=== PATIENT | male | born 1955 | race Caucasian/White ===

== ENCOUNTER 2021-10-14 07:20 | Day surgery (SDC) | payer OTHER ==
--- NOTE | 2021-10-10 10:51 | RAD REPORT ---
EXAM DESCRIPTION: Shanika Blum (2 Views)10/10/2021 10:46 am CLINICAL HISTORY: Preop for colonoscopy COMPARISON: None FINDINGS: The lungs appear clear of acute infiltrate. The heart is normal size IMPRESSION: No acute abnormalities displayed
[2021-10-10 11:00] LABS: Hematocrit 47.5 % (39.6-49.0); Lymphocytes % 26.3 % (15.3-44.8); MPV 7.4 fL (7.6-11.3); RBC Red Blood Cell Count 5.34 M/uL (4.33-5.43)
[2021-10-10 12:40] LABS: Potassium 4.6 mmol/L (3.5-5.1)
[2021-10-14] MEDS ORDERED: Ringers Lactate 1,000 ML IV ONE (07:41)
[2021-10-14] MEDS ORDERED: LIDOCAINE 1% MPF 5 ML VIAL ONE (08:27)
[2021-10-14] MEDS ORDERED: propofoL 200 MG/20 ML VIAL IV ONE (08:27)
--- NOTE | 2021-10-14 08:58 | ENDO RPT ---
[address], [address] COLONOSCOPY PROCEDURE REPORT EXAM DATE: 10/14/2021 PATIENT NAME: Sami Michel MR #: [id number] BIRTHDATE: 1955 ATTENDING: Magdiel Winters M.D. STATUS: outpatient GOLD NIB GRINDER: Kelsey Linton RN INDICATIONS: The patient is a 66 yr old Male here for a colonoscopy due to colon cancer screening and Cologuard Positive PROCEDURE PERFORMED: Colonoscopy MEDICATIONS: Per Anesthesia. ESTIMATED BLOOD LOSS: None CONSENT: The patient understands the risks and benefits of the procedure and understands that these risks include, but are not limited to: sedation, allergic reaction, infection, perforation and/or bleeding. Alternative means of evaluation and treatment include, among others: physical exam, x-rays, and/or surgical intervention. The patient elects to proceed with this endoscopic procedure. DESCRIPTION OF PROCEDURE: During intra-op preparation period all mechanical medical equipment was checked for proper function. Hand hygiene and appropriate measures for infection prevention was taken. Procedure, possible complications, alternatives including, but not limited to possibility of bleeding, perforation, tear, infection, sepsis, need for surgery, need for blood transfusion, were explained to the patient. After the risks, benefits and alternatives of the procedure were thoroughly explained, Informed consent was verified, confirmed and timeout was successfully executed by the treatment team. The patient was placed in the left lateral position. A digital rectal exam was performed and revealed an enlarged prostate. After appropriate level of anesthesia, the scope was passed. The EC-[id number] ([id number]) endoscope was introduced through the anus and advanced to the cecum, which was identified by the ileocecal valve. The quality of the prep was good. The instrument was then slowly withdrawn as the colon was fully examined. Scope withdrawal time was 12 minutes. COLON FINDINGS: Mild diverticulosis was noted in the sigmoid colon. Small internal hemorrhoids were found. Retroflexed views revealed no abnormalities. The scope was then completely withdrawn from the patient and the procedure terminated. ADVERSE EVENTS: There were no complications. IMPRESSIONS: 1. Mild diverticulosis was noted in the sigmoid colon 2. Small internal hemorrhoids RECOMMENDATIONS: 1. follow-up: office 1 week(s) 2. Metamucil 3. fiber rich diet 4. increase dietary water 5. no seeds in diet RECALL: Return in 5 year(s) for Colonoscopy. Magdiel Winters M.D. eSigned: Magdiel Winters M.D. 10/14/2021 8:57 AM cc: Charbel Estevez MD CPT CODES: ICD9 CODES: PATIENT NAME: Sami Michel MR#: [id number]
[2021-10-14 09:48] VITALS: BP 111/78; TEMP 97.7; O2SAT 98
--- NOTE | 2021-10-14 11:26 | EKG ---
Test Date: 2021-10-10 Test Time: 09:26:42 Chief Security Officer: YUMIKO MEASUREMENT RESULTS: Intervals: Rate: 62 IN: 152 QRSD: 82 QT: 388 QTc: 393 [place]: P: 80 IN: 152 QRS: 55 T: 75 INTERPRETIVE STATEMENTS: Sinus rhythm with marked sinus arrhythmia Septal infarct, age undetermined Abnormal ECG No previous ECG available for comparison Electronically Signed On 10-14-21 11:14:18 CDT by Dmitriy Claudio
--- NOTE | 2021-10-14 11:26 | EKG ---
Test Date: 2021-10-10 Test Time: 09:27:19 Steel Tier: YUMIKO MEASUREMENT RESULTS: Intervals: Rate: 60 PA: 162 QRSD: 84 QT: 384 QTc: 384 [place]: P: 73 PA: 162 QRS: 59 T: 76 INTERPRETIVE STATEMENTS: Sinus rhythm with premature atrial complexes Septal infarct, age undetermined Abnormal ECG Compared to ECG 10/10/2021 09:26:42 Atrial premature complex(es) now present Sinus arrhythmia no longer present Myocardial infarct finding still present Electronically Signed On 10-14-21 11:14:16 CDT by Dmitriy Claudio
== END 2021-10-14 09:25 | disposition home or self-care (01) ==
LOC: OR 07:20
PROVIDERS: ATTEND Surgery
PROC: 0DJD8ZZ Inspection of Lower Intestinal Tract, Via Natural or Artificial Opening Endoscopic (ICD-10-PCS; principal; 2021-10-14 08:30)
DX: R19.5 Other fecal abnormalities (principal); K62.5 Hemorrhage of anus and rectum; R11.2 Nausea with vomiting, unspecified; R19.7 Diarrhea, unspecified; K59.09 Other constipation; N40.0 Benign prostatic hyperplasia without lower urinary tract symptoms; K57.30 Diverticulosis of large intestine without perforation or abscess without bleeding; K64.8 Other hemorrhoids; Z20.822 Contact with and (suspected) exposure to COVID-19
CPT/HCPCS: 93005 ×2; 85025; 80048; 36415; 71046; 45378; U0003; J2704; J7120

== ENCOUNTER 2024-03-03 18:53 | Observation (INO) | payer OTHER ==
--- OUTSIDE RECORDS SUMMARY | 2024-03-03 18:57 | XMS REPORT | Continuity of Care Document ---
Author Name Unknown Address [address] [facility] [address] thconnect Address [address] [facility] [address] [place] [address] Care Team Providers Care Delivery Aide Name Role Phone Charbel Estevez Attending Clinician Unavailable Payers Payer Name Policy Type Policy Number Effective Date Expirati on Date Source [employer] MEDICARE 53 [id number] [facility] Problems Condition Name Condition Details Condition Category Status Onset Date Resolution Date Last Treatment Date Treating Clinician Comments Source [id number] Tobacco use disorder, continuous Problem Active [facility] [id number] Odynophagi a Problem Active [facility] [id number] Chronic obstructiv e pulmonary disease, unspecifie d COPD type Problem Active [facility] [id number] Mixed hyperlipid emia Problem Active [facility] Social History Social Habit Start Date Stop Date Quantity Comments Source History of Tobacco Use Current Smoker [facility] Sex Assigned At [facility] Smoking Status Start Date Stop Date Source Current Smoker 2021-09-13 00:00:00 [facility] Vital Signs Vital Name Observation Time Observation Value Comments S awa height 2021-09-17 11:10:00 72 [in_i] Commo n [facility] weight 2021-09-17 11:10:00 186 [lb_av] Comm on [facility] temperature 2021-09-17 11:10:00 98 [degF] Comm on [facility] bmi 2021-09-17 11:10:00 25.22 kg/m2 Comm on [facility] blood pressure systolic 2021-09-17 11:10:00 125 mm[Hg] [facility] blood pressure diastolic 2021-09-17 11:10:00 75 mm[Hg] [facility] height 2021-08-20 11:10:00 72 [in_i] Commo n [facility] weight 2021-08-20 11:10:00 187.2 [lb_av] Co mmon [facility] temperature 2021-08-20 11:10:00 97.8 [degF] Com mon [facility] bmi 2021-08-20 11:10:00 25.39 kg/m2 Comm on [facility] oximetry 2021-08-20 11:10:00 98 % Commo n [facility] respiratory rate 2021-08-20 11:10:00 18 /min [facility] blood pressure systolic 2021-08-20 11:10:00 128 mm[Hg] [facility] blood pressure diastolic 2021-08-20 11:10:00 71 mm[Hg] [facility] Encounters Start Date/Time End Date/Time Encounter Type Admission Type Attending Clinicians Care Facility Care Department Encounter ID Source 2024-03-03 10:37:00 [facility] [id number] [facility] 2022-08-08 13:48:01 Outpatient Estevez, [facility] [id number] [facility] 2021-09-10 13:47:03 [facility] [id number] [facility] 2021-08-22 11:21:03 [facility] [id number] [facility] 2021-08-20 10:33:02 Outpatient Charbel Estevez [facility] [id number] [facility] 2021-09-23 00:00:00 2021-09-23 00:00:00 (TEL) [facility] [id number] [facility] 2021-09-17 00:00:00 2021-09-17 00:00:00 OFFICE VISIT EST PT LEVEL 3 [facility] [id number] [facility] 2021-08-28 00:00:00 2021-08-28 00:00:00 (TEL) [facility] [id number] [facility] 2021-08-28 00:00:00 2021-08-28 00:00:00 (TEL) [facility] [id number] [facility] 2021-08-22 00:00:00 2021-08-22 00:00:00 (TEL) [facility] [id number] [facility] 2021-08-20 00:00:00 2021-08-20 00:00:00 PREV VISIT NEW AGE 65 & OVER [facility] [id number] [facility]
[2024-03-03] MEDS ORDERED: ONDANSETRON 4 MG/2 ML VIAL ONE ×2 (19:27→22:44)
[2024-03-03] MEDS ORDERED: MORPHINE 4 MG/ML SYR ONE (19:28)
[2024-03-03] MEDS ORDERED: PIPERACIL/TAZO 3.375 GM VIAL IV ONE (19:28)
[2024-03-03] MEDS ORDERED: NA CHLORIDE 0.9% 100 ML ONE (19:28)
[2024-03-03 19:33] LABS: Absolute Basophils 0.1 K/uL (0-0.5); Absolute Eosinophils 0.1 K/uL (0-0.5); Absolute Lymphocytes (CBC) 1.6 K/uL (0.7-4.9); Absolute Monocytes 0.7 K/uL (0.1-1.3); Absolute Neutrophil 3.9 K/uL (1.8-8.0); Basophils % 1.1 % (0-1.3); Eosinophils % 2.1 % (0-4.4); Hemoglobin 14.2 g/dL (13.6-17.9); Lymphocytes % 24.5 % (15.3-44.8); MCH 29.5 pg (27.0-35.0); MCHC 32.9 g/dL (32.0-36.0); MCV 89.5 fL (80-100); MPV 7.5 fL (7.6-11.3); Monocytes % 11.1 % (3.3-12.3); Neutrophils % 61.2 % (41.7-73.7); Platelets 377 thou/uL (152-406); Red Cell Distribution Width 14.5 % (12.1-15.2)
[2024-03-03 19:48] LABS: Albumin 3.3 g/dL (3.4-5.0); Albumin/Globulin Ratio 0.8 (1.1-1.8); Anion Gap 9.7 mEq/L (5.0-15.0); Bilirubin Total 0.3 mg/dL (0.2-1.0); Globulin 4.1 g/dL (2.3-3.5); Potassium 3.7 mEq/L (3.5-5.1); Protein, Total 7.4 g/dL (6.4-8.2)
--- NOTE | 2024-03-03 19:48 | EDPHYS ---
Physician Documentation [facility] Name: Sami Michel Age: 68 yrs Sex: Male : 1955 Arrival Date: 03/03/2024 Time: 18:53 Bed 2 Private MD: ED Physician John Ren HPI: 03/03 18:57 This 68 yrs old Male presents to ER via Unassigned with complaints of ec2 Abdominal Pain. 18:57 Patient arrives today for evaluation of abdominal pain. Patient had an abnormal CT scan ec2 also to come to emergency department for evaluation due to concern for appendicitis. I discussed case Dr. Monzon prior to arrival. Will keep patient n.p.o., admit, give Zosyn.. Historical: - Allergies: 19:25 No Known Allergies; jb4 - PMHx: 19:25 None; jb4 - PSHx: 19:25 esophageal surgery; jb4 - Immunization history:: Adult Immunizations up to date. - Infectious Disease History:: Denies. - Social history:: Smoking status: Reported history of juuling and/or vaping. ROS: 18:57 Constitutional: as per hpi ec2 Exam: 18:57 Constitutional: GEN: NAD Head: atraumatic Eyes: EOMI Ears: External ears are ec2 normal. CV: regular rate LUNGS: no respiratory distress ABD: non-distended, soft, tender in the right lower quadrant, no guarding, not rigid. SKIN: no evidence of rashes MSK: no evidence of trauma Vital Signs: 19:21 BP 149 / 92; Pulse 62; Resp 16; Temp 97.2(O); Pulse Ox 99% on R/A; Weight 90.72 kg; jb4 Height 6 ft. 0 in. ; Pain 0/10; 20:20 BP 142 / 87; Pulse 66; Resp 17; Pulse Ox 99% ; jj7 20:56 BP 134 / 96; Pulse 66; Resp 17; Pulse Ox 100% ; jj7 19:21 Body Mass Index 27.13 (90.72 kg, 182.88 cm) jb4 19:21 Pain Scale: Adult jb4 MDM: 18:54 Patient medically screened. ec2 18:58 Data reviewed: vital signs. ED course: Patient arrives today due to concern for ec2 appendicitis. Discussed case with Dr. Monzon prior to arrival. Will obtain lab work, admit to hospitalist, keep n.p.o., plan to go to the OR.. 19:47 ED course: Discussed the case with hospitalist, will admit, keep NPO.. ec2 03/03 18:54 Order name: CBC with Diff; Complete Time: 19:36 ec2 03/03 18:54 Order name: CMP; Complete Time: 19:50 ec2 03/03 18:54 Order name: Lipase; Complete Time: 19:50 ec2 03/03 20:12 Order name: Urinalysis w/ reflexes EDMS 03/03 20:12 Order name: CBC with Automated Diff EDMS 03/03 20:12 Order name: CBC with Automated Diff EDMS 03/03 20:12 Order name: Comprehensive Metabolic Panel EDMS 03/03 20:12 Order name: Comprehensive Metabolic Panel EDMS 03/03 20:12 Order name: CONS Physician Consult EDMS 03/03 18:54 Order name: IV Saline Lock; Complete Time: 19:30 ec2 03/03 18:54 Order name: Labs collected and sent; Complete Time: 19:30 ec2 03/03 18:59 Order name: NPO; Complete Time: 19:30 ec2 Administered Medications: 19:41 Not Given (Patient Refused): ondansetron 4 mg IVP once; over 2 minutes jj7 19:41 Drug: Piperacillin-Tazobactam IVPB 3.375 grams IVPB once over 60 mins; (mix in NS 100 jj7 mL) Route: IVPB; Infused Over: 60 mins; Site: right antecubital; 20:55 Follow up: IV Status: Completed infusion jj7 20:38 Not Given (Patient Refused): morphineor iv 4 mg IVP once over 4 mins jj7 Disposition Summary: 03/03/24 19:48 Hospitalization Ordered Notes: Hospitalization Status: Inpatient Admission ec2 Provider: Horacio Zhang ec2 Location: Telemetry/MedSur (Inpatient) ec2 Condition: Stable ec2 Problem: new ec2 Symptoms: are unchanged ec2 Bed/Room Type: Standard ec2 Room Assignment: 214(03/03/24 20:17) rv1 Diagnosis - Acute appendicitis with localized peritonitis ec2 Forms: - Medication Reconciliation Form ec2 - SBAR form ec2 - Leadership Thank You Letter ec2 Signatures: Dispatcher [employer] EDDarrius Thacker, RN RN jb4 Mynor Henley RN RN jj7 Gina Seals rv1 John Ren MD MD ec2 Corrections: (The following items were deleted from the chart) 18:55 18:55 CBC+H.LAB.BRZ ordered. EDMS EDMS 18:55 18:55 COMPREHENSIVE METABOLIC PANEL+C.LAB.BRZ ordered. EDMS EDMS 18:55 18:55 LIPASE+C.LAB.BRZ ordered. EDMS EDMS 20:17 19:48 ec2 rv1
--- NOTE | 2024-03-03 19:48 | ER ---
Nurse's Notes [facility] Name: Sami Michel Age: 68 yrs Sex: Male : 1955 Arrival Date: 03/03/2024 Time: 18:53 Bed 2 Private MD: Diagnosis: Acute appendicitis with localized peritonitis Presentation: 03/03 19:21 Chief complaint: Patient states: I was sent here initially by Dr. Estevez for a CT due to jb4 right lower abdominal pain. After the CT, one of their staff members told me to come here and to check in. Coronavirus screen: At this time, the client does not indicate any symptoms associated with coronavirus-19. Ebola Screen: No symptoms or risks identified at this time. Initial Sepsis Screen: Does the patient meet any 2 criteria? No. Patient's initial sepsis screen is negative. Does the patient have a suspected source of infection? No. Patient's initial sepsis screen is negative. Risk Assessment: Do you want to hurt yourself or someone else? Patient reports no desire to harm self or others. Onset of symptoms was March 03, 2024. 19:21 Method Of Arrival: Ambulatory jb4 19:21 Acuity: NONI 3 jb4 Historical: - Allergies: 19:25 No Known Allergies; jb4 - PMHx: 19:25 None; jb4 - PSHx: 19:25 esophageal surgery; jb4 - Immunization history:: Adult Immunizations up to date. - Infectious Disease History:: Denies. - Social history:: Smoking status: Reported history of juuling and/or vaping. Screenin:31 [facility] ED Fall Risk Assessment (Adult) History of falling in the last 3 months, jj7 including since admission No falls in past 3 months (0 pts) Confusion or Disorientation No (0 pts) Intoxicated or Sedated No (0 pts) Impaired Gait No (0 pts) Mobility Assist Device Used No (0 pt) Altered Elimination No (0 pt) Score/Fall Risk Level 0 - 2 = Low Risk Oriented to surroundings, Maintained a safe environment, Educated pt \T\ family on fall prevention, incl call for assistance when getting out of bed, Assessed \T\ reinforced patient's understanding of fall precautions. Abuse screen: Denies threats or abuse. Nutritional screening: No deficits noted. Tuberculosis screening: No symptoms or risk factors identified. Assessment: 19:31 General: Appears in no apparent distress. comfortable, Behavior is calm, cooperative, jj7 appropriate for age. Pain: Denies pain. GI: Bowel sounds present X 4 quads. Abd is soft and non tender. 20:54 Reassessment: RICARDA WITH OR HERE TO TAKE PT THE OR FOR SURGERY. jj7 Vital Signs: 19:21 BP 149 / 92; Pulse 62; Resp 16; Temp 97.2(O); Pulse Ox 99% on R/A; Weight 90.72 kg; jb4 Height 6 ft. 0 in. ; Pain 0/10; 20:20 BP 142 / 87; Pulse 66; Resp 17; Pulse Ox 99% ; jj7 20:56 BP 134 / 96; Pulse 66; Resp 17; Pulse Ox 100% ; jj7 19:21 Body Mass Index 27.13 (90.72 kg, 182.88 cm) jb4 19:21 Pain Scale: Adult jb4 ED Course: 18:54 Patient arrived in ED. ec2 18:54 John Ren MD is Attending Physician. ec2 19:24 Inserted saline lock: 22 gauge in right antecubital area, using aseptic technique. jj7 Blood collected. Flushed with 10 mL NS. 19:25 Triage completed. jb4 19:25 Arm band placed on right wrist. jb4 19:30 CBC with Diff Sent. jj7 19:30 CMP Sent. jj7 19:30 Lipase Sent. jj7 19:31 Patient has correct armband on for positive identification. Provided Education on: USE jj7 OF CALL DALAL. 19:47 Horacio Zhang MD is Hospitalizing Provider. ec2 20:01 Mynor Henley RN is Primary Nurse. jj7 20:20 No provider procedures requiring assistance completed. jj7 20:56 Patient admitted, IV remains in place. jj7 Administered Medications: 19:41 Not Given (Patient Refused): ondansetron 4 mg IVP once; over 2 minutes jj7 19:41 Drug: Piperacillin-Tazobactam IVPB 3.375 grams IVPB once over 60 mins; (mix in NS 100 jj7 mL) Route: IVPB; Infused Over: 60 mins; Site: right antecubital; 20:55 Follow up: IV Status: Completed infusion jj7 20:38 Not Given (Patient Refused): morphineor iv 4 mg IVP once over 4 mins jj7 Medication: 19:31 VIS not applicable for this client. jj7 Outcome: 19:48 Decision to Hospitalize by Provider. ec2 20:56 Admitted to OR accompanied by nurse, via wheelchair, Report called to RICARDA DU WITH jj7 SURGERY AND SBAR FAXED TO 2ND FLOOR 20:56 Condition: improved 21:00 Patient left the ED. jj7 Signatures: Darrius Velazco RN RN jb4 Mynor Henley RN RN jj7 John Ren MD MD ec2 Corrections: (The following items were deleted from the chart) 19:26 19:21 BP 149 / 92; Pulse 62bpm; Resp 16bpm; Pulse Ox 99% RA; Temp 97.2F Oral; 90.72 kg; jb4 Height 6 ft. 0 in.; BMI: 27.1; jb4 20:38 19:41 morphine IVP or IV 4 mg IVP in right antecubital over 4 mins jj7 jj7
[2024-03-03] MEDS ORDERED: ONDANSETRON 4 MG/2 ML VIAL IV PRN (20:07)
--- NOTE | 2024-03-03 20:07 | P.HP ---
Certification for Inpatient Patient admitted to: Inpatient With expected LOS: >2 Midnights Practitioner: I am a practitioner with admitting privileges, knowledge of patient current condition, hospital course, and medical plan of care. Services: Services provided to patient in accordance with Admission requirements found in Title 42 Section 412.3 of the Code of Federal Regulations Patient History Date of Service: 03/04/24 Reason for admission: Abdominal Pain History of Present Illness: 68 yrs old Male with no significant past medical history came to ER with abdominal pain . Pain was located in the right upper quadrant, intermittent, 7 out of 10 in severity. Intermittent, going on for the last 2 days and has been progressively worsening. Patient was assessed in our ER and was had a CT scan which was consistent with possible appendicitis and was sent over here for further management. No fever or chills. No nausea vomiting or diarrhea. No sick contacts. Patient was assessed in the ER and surgery was consulted for possible laparoscopic appendectomy Allergies No Known Allergies Allergy (Verified 10/14/21 07:56) Home Medications: Famotidine [Pepcid] 1 tab PO PRN PRN 10/10/21 - Past Medical/Surgical History Past Medical History: Reviewed- Non-Contributory Past Surgical History: Reviewed- Non-Contributory - Family History Family History: Reviewed- Non-Contributory - Social History Smoking Status: Never smoker Review of Systems 10-point ROS is otherwise unremarkable Physical Examination - Vital Signs Temperature: 97.2 F Blood Pressure: 148/78 Pulse: 62 Respirations: 18 Pulse Ox (%): 94 - Physical Exam General: Alert, In no apparent distress, Oriented x3 HEENT: Atraumatic, Normocephalic Neck: Supple Respiratory: Clear to auscultation bilaterally, Normal air movement Cardiovascular: Regular rate/rhythm, Normal S1 S2 Capillary refill: <2 Seconds Gastrointestinal: W/out succussion splash, Tenderness Musculoskeletal: No clubbing, No swelling Integumentary: No rashes, No breakdown Neurological: Normal speech, Normal strength at 5/5 x4 extr, Cranial nerves 3-12 intact Lymphatics: No axilla or inguinal lymphadenopathy - Studies Laboratory Data (last 24 hrs) 03/03/24 03/03/24 19:24 19:24 WBC 6.40 Hgb 14.2 Hct 43.0 Plt Count 377 Sodium 139 Potassium 3.7 BUN 15 Creatinine 0.91 Glucose 87 Total Bilirubin 0.3 AST 34 ALT 48 Alkaline Phosphatase 111 Lipase 50 Assessment and Plan - Plan Acute Appendicitis Pain control Started on IV antibiotics with Zosyn Started on IV hydration Surgical consult Hypertension Continue antihypertensives Monitor closely on telemetry GI/DVT prophylaxis Advanced directive full code Discharge Plan: Home Plan to discharge in: 48 Hours - Advance Directives Does patient have a Living Will: No Does patient have a Durable POA for Healthcare: No - Code Status/Comfort Care Code Status: Full Code Time Spent Managing Pts Care (In Minutes): 48
[2024-03-03] MEDS ORDERED: MORPHINE 2 MG/ML SYR IV PRN (20:10)
[2024-03-03] MEDS ORDERED: HYDROCODONE/APAP 5/325 MG TAB PO PRN (20:10)
[2024-03-03] MEDS: NA CHLORIDE 0.9% 1,000 ML IV SCH (21:00)
[2024-03-03] MEDS: Ringers Lactate 1,000 ML IV ONE (21:05)
[2024-03-03] MEDS: SUCCINYLCHOLINE 20 MG/ML (10 ML) IV ONE (21:43)
[2024-03-03] MEDS: SUGAMMADEX SODIUM 200 MG/2 ML VIAL IV ONE (21:43)
[2024-03-03] MEDS ORDERED: MIDAZOLAM HCL 2 MG/2 ML INJ ONE (21:44)
[2024-03-03] MEDS ORDERED: ROCURONIUM 50 MG/5 ML VIAL IV ONE (21:44)
[2024-03-03] MEDS ORDERED: FENTANYL CITR 100 MCG/2 ML ONE (21:44)
[2024-03-03] MEDS ORDERED: propofoL 200 MG/20 ML VIAL IV ONE (21:44)
[2024-03-03] MEDS ORDERED: LIDOCAINE 2% MPF 5 ML VIAL ONE (21:46)
[2024-03-03] MEDS: LIDOCAINE HCL/EPINEPHRINE 20 ML MDV ONE (22:35)
--- NOTE | 2024-03-03 22:52 | P.OP ---
Preoperative diagnosis: Appendicitis Postoperative diagnosis: Appendicitis Primary procedure: Laparoscopic Appendectomy Anesthesia: GETA + Local Estimated blood loss: <5cc Specimen: Appendix Findings: Non-perforated appencitis Complications: None Transferred to: Recovery Room Condition: Good
[2024-03-03] MEDS: HYDROMORPHONE HCL 1 MG/ML INJ ONE (23:03)
[2024-03-03] MEDS: FENTANYL CITR 100 MCG/2 ML ONE (23:14)
[2024-03-03] MEDS: NA CHLORIDE 0.9% 1,000 ML ONE (23:20)
[2024-03-03 23:28] VITALS: O2SAT 95
[2024-03-03 23:54] VITALS: BMI 27.1
--- NOTE | 2024-03-04 00:39 | OP ---
Date of Procedure: 03/03/2024 Surgeon: Abdirahman Monzon MD, Preoperative Diagnosis: Acute appendicitis. Postoperative Diagnosis: Acute appendicitis. Procedure Performed: Laparoscopic appendectomy. Anesthesia: General endotracheal plus local, 1% lidocaine. Estimated Blood Loss: Less than 5 cc. Specimens: Vermiform appendix. Findings: Nonperforated appendicitis. The patient had an umbilical hernia prior to surgery. Complications: None. Disposition: The patient was transferred to recovery room in good condition. Procedure In Detail: After informed consent was obtained, the patient was brought into the operating room, prepped and draped in the usual sterile fashion. After adequate anesthesia achieved, I anesth etized an area in the infraumbilical position down to subcutaneous tissues. 5 mm 0-degree optical tr ocar was introduced in the abdomen without incident or complication. Insufflation was obtained to 15 mmHg at this time. There was no injury to bowel structures. Upon entry into the abdomen, additiona l trocar placed in the supraumbilical position and one in the right lower quadrant. Both of these we re 5 mm trocars placed under direct visualization. The umbilical trocar was then upsized to a 12 mm under direct visualization without incident or complication. The patient was positioned head down, r ight side up position. Graspers grasped the patient's appendix, created a mesoappendiceal window wit h [place] retractor. Endo MAGALI 45 purple load fired across to the base of the appendix at the conflu ence of the cecum with good approximation of tissues. The LigaSure device was then used to take the mesoappendix down without incident or complication. Endo Catch was placed into the abdomen. The harshil endix was placed in the Endo Catch bag and removed at the umbilical trocar site, and sent off for pat hologic examination. The area was copiously irrigated. No hemostatic measures required. The pelvis was then irrigated and suctioned out to completely dry. The patient presented back to neutral posit ion. Remaining effluent was suctioned out. The umbilical trocar site was then closed using a Renato -Leanne suture passer with 0 Vicryl in interrupted fashion with good approximation of tissues. The abdomen was desufflated under direct visualization without incident or complication. The patient to lerated procedure without incident or complication and transferred to PACU in good condition. All co unts were correct at the end of the case. TK/MODL Voice ID: [id number] Report ID: [id number]
[2024-03-04] MEDS: PIPER TAZO 3.375 GM in NA CHLORIDE 0.9% 100 ML IV SCH (00:54)
[2024-03-04] MEDS ORDERED: HYDRALAZINE HCL 20 MG/ML VIAL IV PRN (05:25)
[2024-03-04 06:30] LABS: Absolute Basophils 0.1 K/uL (0-0.5); Absolute Eosinophils 0.1 K/uL (0-0.5); Absolute Lymphocytes (CBC) 1.4 K/uL (0.7-4.9); Absolute Monocytes 0.7 K/uL (0.1-1.3); Absolute Neutrophil 5.2 K/uL (1.8-8.0); Basophils % 0.9 % (0-1.3); Eosinophils % 1.6 % (0-4.4); Hematocrit 40.2 % (39.6-49.0); Hemoglobin 13.4 g/dL (13.6-17.9); Lymphocytes % 18.4 % (15.3-44.8); MCH 29.5 pg (27.0-35.0); MCHC 33.3 g/dL (32.0-36.0); MCV 88.5 fL (80-100); MPV 7.8 fL (7.6-11.3); Monocytes % 9.3 % (3.3-12.3); Neutrophils % 69.8 % (41.7-73.7); Platelets 337 thou/uL (152-406); RBC Red Blood Cell Count 4.54 M/uL (4.33-5.43); Red Cell Distribution Width 14.3 % (12.1-15.2)
[2024-03-04 06:46] LABS: Albumin 2.8 g/dL (3.4-5.0); Albumin/Globulin Ratio 0.8 (1.1-1.8); Anion Gap 7.9 mEq/L (5.0-15.0); Bilirubin Total 0.4 mg/dL (0.2-1.0); Globulin 3.3 g/dL (2.3-3.5); Potassium 3.9 mEq/L (3.5-5.1); Protein, Total 6.1 g/dL (6.4-8.2)
[2024-03-04] MEDS: ACETAMINOPHEN 325 MG TABLET PO PRN (07:27)
[2024-03-04] MEDS: FAMOTIDINE 20 MG TAB PO SCH (08:09)
[2024-03-04 08:25] VITALS: BP 142/92; TEMP 97.1
--- NOTE | 2024-03-04 10:01 | P.DS ---
Admission Date: 03/03/24 Discharge Date: 03/04/24 Disposition: ROUTINE DISCHARGE Discharge Condition: GOOD Reason for Admission: Abdominal Pain - Problems (1) Acute appendicitis Status: Acute Brief History of Present Illness: 68 yrs old Male with no significant past medical history presented to the ER with abdominal pain of 2 days duration, intensity about 7/10, located in the right upper quadrant of the abdomen. Patient had a CT abdomen and pelvis done as outpatient reporting possible appendicitis and was sent over to the ER for further management. Patient was assessed in the ER and surgery was consulted for possible laparoscopic appendectomy. Hospital Course: Patient was hospitalized, started on IV Zosyn. He was seen and evaluated by Dr. Monzon who performed laparoscopic appendectomy. Appendicitis diagnosis confirmed. Patient was monitored overnight with no issues. He tolerated regular diet. He currently states his pain is controlled. Patient deemed stable for discharge per Dr. oMnzon. Vital Signs/Physical Exam: Temp Pulse Resp BP Pulse Ox 97.1 F 66 16 142/92 H 95 03/04/24 08:00 03/04/24 08:00 03/04/24 08:00 03/04/24 08:00 03/04/24 08:00 General: Alert, In no apparent distress, Oriented x3 HEENT: Mucous membr. moist/pink Neck: Supple, JVD not distended Respiratory: Clear to auscultation bilaterally, Normal air movement Cardiovascular: No edema, Regular rate/rhythm, Normal S1 S2 Gastrointestinal: Soft and benign, Non-distended, Other (Clean trocar wounds) Musculoskeletal: No swelling, No tenderness Integumentary: No rashes, No cyanosis Neurological: Normal strength at 5/5 x4 extr Laboratory Data at Discharge: WBC 7.50 thou/uL (4.3-10.9) 03/04/24 05:51 Hgb 13.4 g/dL (13.6-17.9) L 03/04/24 05:51 Hct 40.2 % (39.6-49.0) 03/04/24 05:51 Plt Count 337 thou/uL (152-406) 03/04/24 05:51 Sodium 139 mEq/L (136-145) 03/04/24 05:51 Potassium 3.9 mEq/L (3.5-5.1) 03/04/24 05:51 BUN 10 mg/dL (7-18) 03/04/24 05:51 Creatinine 0.77 mg/dL (0.70-1.30) 03/04/24 05:51 Glucose 91 mg/dL (74-106) 03/04/24 05:51 Total Bilirubin 0.4 mg/dL (0.2-1.0) 03/04/24 05:51 AST 20 U/L (15-37) 03/04/24 05:51 ALT 35 U/L (16-61) 03/04/24 05:51 Alkaline Phosphatase 99 U/L (45-117) 03/04/24 05:51 Lipase 50 U/L (13-75) 03/03/24 19:24 Home Medications: Famotidine [Pepcid] 1 tab PO PRN PRN 10/10/21 Amox/Clavulanate [Augmentin 875-125 Tab] 1 each PO BID #10 tab 03/04/24 Hydrocodone 5/APAP 325 [[place] 5/325*] 1 tab PO Q4H PRN #15 tab 03/04/24 New Medications: Amox/Clavulanate [Augmentin 875-125 Tab] 1 each PO BID #10 tab Hydrocodone 5/APAP 325 [[place] 5/325*] 1 tab PO Q4H PRN #15 tab PRN Reason: Pain Scale 5-7 (Moderate) Diet: Regular Activity: No lifting more than 10 lbs Followup: Abdirahman Monzon MD [ACTIVE - CAN ADMIT] - Charbel Estevez DO [Primary Care Provider] - Time spent managing pt's care (in minutes): 25
== END 2024-03-04 09:30 | disposition home or self-care (01) ==
LOC: ER 18:53 → INTOOBSV 20:07 → 2ND 20:07
PROVIDERS: ADMIT Family Medicine; ATTEND Internal Medicine
PROC: 0DTJ4ZZ Resection of Appendix, Percutaneous Endoscopic Approach (ICD-10-PCS; principal; 2024-03-03 21:30)
DX: K35.80 Unspecified acute appendicitis (principal); R10.9 Unspecified abdominal pain; I10 Essential (primary) hypertension
CPT/HCPCS: 96365; 85025 ×2; 36415; 88304; 83690; 80053 ×2; 99285; 44970; J2704; J2543 ×3; J2001; J2250; J3010 ×2; J1170; J2405; G0378 ×3; J7120; J7030